=== PATIENT | male | born 1995 | race Two or more races ===

== ENCOUNTER 2020-03-15 18:41 | Emergency (ER) | payer SELFPAY ==
[~2020-03-15] VITALS: Ht 170.2 cm; Wt 71.2 kg
[2020-03-16] MEDS ORDERED: FLUORESCEIN SOD 1 MG TEST STRIP LEFTEYE ONE (02:15)
[2020-03-16] MEDS ORDERED: TETRACAINE HCL 0.5% OPTH(EYE) SOLN 4ML LEFTEYE ONE (02:15)
[2020-03-16] MEDS ORDERED: TETANUS-DIPTH-ACEL PERTUSSIS 0.5ML SYR Tdap IM ONE (02:45)
[2020-03-16 03:00] VITALS: BP 132/84
== END 2020-03-16 04:31 | disposition home or self-care (01) ==
LOC: ER 18:41
DX: T15.02XA Foreign body in cornea, left eye, initial encounter (principal); X58.XXXA Exposure to other specified factors, initial encounter; Y93.89 Activity, other specified; Y92.89 Other specified places as the place of occurrence of the external cause; Y99.8 Other external cause status
CPT/HCPCS: 90471; 90715